=== PATIENT | female | born 1950 | race Caucasian/White ===

== ENCOUNTER 2016-06-04 06:07 | Day surgery (SDC) | payer BC ==
[2016-05-29 11:10] LABS: HEMATOCRIT 31.7 % (36.0-48.0); HEMOGLOBIN 11.2 g/dL (12.0-16.0)
[2016-05-29 11:24] LABS: BUN (BLOOD UREA NITROGEN) 14 MG/DL (6-23); CALCIUM, SERUM 7.9 MG/DL (8.5-10.4); CHLORIDE, SERUM 107 MMOL/L (96-112); CO2 (CARBON DIOXIDE) 28 MMOL/L (24-34); CREATININE 0.82 MG/DL (0.55-1.02); GFR AFRICAN AMERICAN 88 ML/MIN (>=60); GFR NON AFRICAN AMERICAN 76 ML/MIN (>=60); GLUCOSE, SERUM 80 MG/DL (60-99); POTASSIUM, SERUM 3.6 MMOL/L (3.5-5.3); SODIUM, SERUM 144 MMOL/L (135-148)
[~2016-06-04 06:07] MED LIST: ATV.5 PO; B COMPLEX-C PO; CALTRA600D PO; CARDIZEM LA120 MG PO; CLARIT10 PO; MULTIPLE VIT PO; NASACORTAQ NAS; TAMOXIFEN20 M1 PO; ZYBAN
== END 2016-06-04 23:59 | disposition home or self-care (01) ==
LOC: MSC 06:07
PROVIDERS: Surgery Plastic and Reconstructive Surgery
PROC: 0HUV0JZ Supplement Bilateral Breast with Synthetic Substitute, Open Approach (ICD-10-PCS; 2016-06-04)
PROC: 0H0T37Z Alteration of Right Breast with Autologous Tissue Substitute, Percutaneous Approach (ICD-10-PCS; 2016-06-04)
PROC: 0HBT0ZX Excision of Right Breast, Open Approach, Diagnostic (ICD-10-PCS; principal; 2016-06-04 07:15)
PROC: 0HPU0JZ Removal of Synthetic Substitute from Left Breast, Open Approach (ICD-10-PCS; 2016-06-04 07:15)
PROC: 0HPT0JZ Removal of Synthetic Substitute from Right Breast, Open Approach (ICD-10-PCS; 2016-06-04 07:15)
DX: T85.44XA Capsular contracture of breast implant, initial encounter (principal); Z85.3 Personal history of malignant neoplasm of breast; I47.1 Supraventricular tachycardia; I49.3 Ventricular premature depolarization; K21.9 Gastro-esophageal reflux disease without esophagitis; F41.9 Anxiety disorder, unspecified
CPT/HCPCS: 80048; 85014; 85018; 88305; 93005; A9270-GY; C1789; J0690; J1580; J2250; J2270; J2405; J2710; J3010

== ENCOUNTER 2016-06-04 06:07 | Day surgery (SDC) | payer OTHER | END 2016-06-04 23:59 | disposition home or self-care (01) | LOC: MSC 06:07 | PROC: 3E013GC Introduction of Other Therapeutic Substance into Subcutaneous Tissue, Percutaneous Approach (ICD-10-PCS; principal; 2016-06-04) | DX: Z41.1 Encounter for cosmetic surgery (principal) ==